=== PATIENT | female | born 1945 | race Caucasian/White ===

== ENCOUNTER 2020-04-12 12:00 | Emergency (ER) | payer OTHER ==
[~2020-04-12] VITALS: Ht 172.7 cm; Wt 88.5 kg
[2020-04-12] MEDS ORDERED: LATANOPROST 0.2.5 ML OPHTHALMIC (12:19)
[2020-04-12] MEDS ORDERED: LEVOTHYROXINE88 MCG PO (12:19)
[2020-04-12] MEDS ORDERED: ROSUVASTATIN CA10 MG PO (12:19)
[2020-04-12] MEDS ORDERED: ESCITALOPRAM OX10 MG PO (12:19)
[2020-04-12 13:53] LABS: ABSOLUTE NEUTROPHILS 11.5 thou/uL (1.4-8.2); BASOPHILS 0.2 % (0.0-2.0); EOSINOPHILS 0.2 % (0.0-3.0); HEMATOCRIT 42.2 % (37.0-47.0); LYMPHOCYTES 4.5 % (24.0-44.0); MCH 31.8 pg (26.0-34.0); MCHC 33.2 g/dL (28.0-37.0); MCV 95.7 fL (80.0-100.0); MONOCYTES 8.9 % (1.0-8.0); PLATELET COUNT 180 thou/uL (150-400); POLYS 86.2 % (36.0-66.0); RBC 4.41 mil/uL (4.20-5.00); RDW 13.2 % (10.5-14.5); WBC 13.4 thou/uL (4.0-11.0)
[2020-04-12 14:04] LABS: CREATININE 1.3 mg/dL (0.6-1.0); MAGNESIUM 2.4 mg/dL (1.8-2.4); POTASSIUM 4.5 mmol/L (3.5-5.1)
--- NOTE | 2020-04-12 14:32 | EKG ---
[facility] [address] ELECTROCARDIOGRAM REPORT Name: VASQUEZ RANDALL Room #: [facility]#: [id number] Admission: 04/12/20 Attend Phys: Discharge: Date of : 43 Report #: [id number] THIS REPORT FOR: cc: FAM - Family physician unknown FAM - Family physician unknown Jimbo Hitchcock MD ~ THIS REPORT FOR: //name// [facility] ED Test Date: 2020-04-12 Test Time: 14:16:59 Pat Name: VASQUEZ RANDALL Department: Room: Gender: F Email Designer: penny patricia : 1945 Requested By: London Griffin Order Number: [id number] MD: Jimbo Hitchcock Measurements Intervals [place] Rate: 61 P: 41 NH: 156 QRS: -30 QRSD: 91 T: 23 QT: 421 QTc: 424 Interpretive Statements Sinus rhythm Probable left ventricular hypertrophy Inferior infarct, old Anterior Q waves, possibly due to LVH No previous ECG available for comparison Electronically Signed On 04-12-2020 14:32:13 CDT by Jimbo Hitchcock [email or web address] <ELECTRONICALLY SIGNED> By: Jimbo Hitchcock MD 04/12/20 1432 1416 1416 Jimbo Hitchcock MD /RAHUL
[2020-04-12 15:47] VITALS: BP 140/58
== END 2020-04-12 15:57 | disposition home or self-care (01) ==
LOC: ER 12:00
PROVIDERS: Emergency Medicine
DX: R19.7 Diarrhea, unspecified (principal); R11.2 Nausea with vomiting, unspecified; R55 Syncope and collapse; E03.9 Hypothyroidism, unspecified; E78.00 Pure hypercholesterolemia, unspecified; Z79.899 Other long term (current) drug therapy; Z88.0 Allergy status to penicillin; Z88.2 Allergy status to sulfonamides